=== PATIENT | male | born 1945 | race Caucasian/White ===

== ENCOUNTER 2018-12-18 09:19 | Emergency (ER) | payer BC ==
[~2018-12-18] VITALS: Ht 172.7 cm; Wt 89.4 kg
[2018-12-18 09:19] VITALS: BP_SYST 149
[~2018-12-18 09:19] MED LIST: CLON0.2T PO; METO-540 PO; OMEP20CA10 PO; VALS320T2 PO; WARF-52 PO
--- NOTE | 2018-12-18 09:20 | NUR ---
BROUGHT BACK TO BED #7 VIA WHEELCHAIR AND PLACED IN BED, TRIAGED. REPORT GIVEN TO JUAN ALBERTO
--- NOTE | 2018-12-18 09:32 | NUR ---
ER Dr. BOWSER at bedside examining patient.
--- NOTE | 2018-12-18 09:37 | NUR ---
PATIENT CAME IN COMPLAINING OF PAIN IN LOWER BACK FOR ABOUT 2 DAYS NOW. PATIENT COMPLAINING OF PAIN SHARP 9/10 PAIN. PATIENT DENIES INJURING SELF. PATIENT TOOK ADVIL FOR PAIN BUT DID NOT WORK. PATIENT NOT COMPLAINING OF NUMBNESS OR TINGLING. PATIENT HAS HISTORY OF SCIATICA. PATIENT NOT COMPLAINING OF SOB, NAUSEA, OR VOMITING. PATIENT ALERT AND ORIENTED X4.
[2018-12-18] MEDS ORDERED: KETOROLAC TROMETHAMINE 60 MG/2 ML VIAL IM ONE (09:45)
[2018-12-18] MEDS ORDERED: MORPHINE 4 MG/ML INJ. SYRINGE IM ONE ×2 (09:45→10:30)
--- NOTE | 2018-12-18 10:23 | NUR ---
DAUGHTER AT BEDSIDE WANTS PATIENT TO BE ADMITTED BECAUSE HE IS STILL IN PAIN.
--- NOTE | 2018-12-18 11:40 | NUR ---
PATIENT STILL COMPLAINING OF PAIN. PAIN MEDICATION NOT WORKING. DR BOWSER AWARE.
[2018-12-18] MEDS ORDERED: MORPHINE 4 MG/ML INJ. SYRINGE IVP ONE (11:45)
--- NOTE | 2018-12-18 12:01 | NUR ---
PATIENT LEFT TO CT VIA GURNEY IN STABLE CONDITION. PATIENT JUST GIVEN PAIN MEDICATION.
--- NOTE | 2018-12-18 12:19 | NUR ---
PATIENT BACK FROM CT IN STABLE CONDITION.
[2018-12-18 13:00] VITALS: BP_SYST 148
--- NOTE | 2018-12-18 13:00 | NUR ---
Patient given written and verbal discharge instructions and verbalizes understanding. ER MD discussed with patient the results and treatment provided. Patient in stable condition. ID arm band removed. Rx of NORCO AND FLEXERIL given. Patient educated on pain management and to follow up with PMD. Pain Scale 5/10 TOLERABLE AND SENT WITH RX OF PAIN MEDS. Opportunity for questions provided and answered. Medication side effect fact sheet provided.
== END 2018-12-18 13:00 | disposition home or self-care (01) ==
LOC: SED 09:19
DX: G89.29 Other chronic pain (principal); M54.5 Low back pain; K21.9 Gastro-esophageal reflux disease without esophagitis; I10 Essential (primary) hypertension; Z79.899 Other long term (current) drug therapy; X50.0XXA Overexertion from strenuous movement or load, initial encounter; Y93.89 Activity, other specified; Y92.89 Other specified places as the place of occurrence of the external cause; Y99.8 Other external cause status
CPT/HCPCS: 72131; 96372; 99284; J1885; J2270